=== PATIENT | male | born 1950 | race Caucasian/White ===

== ENCOUNTER → 2021-03-11 12:38 | Outpatient (CLI) | payer MEDICARE, SELFPAY ==
[2021-02-26 10:07] VITALS: BMI 20.5
--- NOTE | 2021-03-11 12:41 | CDU_ITS ---
Reason For Study: CAROTID STENOSIS Rt. Velocities/BP Lt. Velocities/BP Prox CCA 96.4/26.0 cm/sec. Prox CCA 85.7/19.9 cm/sec. Mid CCA 82.0/23.3 cm/sec. Mid CCA 87.5/25.4 cm/sec. Dist CCA 72.9/23.3 cm/sec. Dist CCA 93.0/30.9 cm/sec. Prox ICA 222.8/64.3 cm/sec. Prox ICA 162.2/34.9 cm/sec. Mid ICA 228.3/69.8 cm/sec. Mid ICA 153.4/39.3 cm/sec. Dist ICA 122.2/34.5 cm/sec. Dist ICA 96.3/26.1 cm/sec. Rt. ICA/CCA = 228.3/96.4=2.4. Lt. ICA/CCA = 162.2/87.5=1.9. Prox ECA 154.5/32.1 cm/sec. Prox ECA 151.4/21.7 cm/sec. Rt. Vert. 78.4/19.9 cm/sec. Lt. Vert. 66.0/17.9 cm/sec. Right Extracranial There is homogeneous, smooth atherosclerotic plaque noted in the right common carotid artery. There is heterogeneous, irregular atherosclerotic plaque noted in the right internal carotid artery. There is heterogeneous, irregular atherosclerotic plaque noted in the right external carotid artery. Antegrade flow is noted in the right vertebral artery. There is heterogeneous, irregular atherosclerotic plaque noted in the right bulb. Left Extracranial There is homogeneous, smooth atherosclerotic plaque noted in the left common carotid artery. There is heterogeneous, irregular atherosclerotic plaque noted in the left internal carotid artery. There is heterogeneous, smooth atherosclerotic plaque noted in the left external carotid artery. Antegrade flow is noted in the left vertebral artery. There is heterogeneous, irregular atherosclerotic plaque noted in the left bulb. VL/Carotid Duplex Ultrasound Interpretation Summary Extensive irregular calcific plaque with shadowing at the proximal right [employer] al carotid artery with greater than 70% stenosis. Tandem area of stenosis noted within the proxim al and mid right internal carotid artery Less than 50% stenosis right external carotid artery Irregular calcific plaque in the proximal left internal carotid artery with 50 to 69% stenosis. Less than 50% stenosis left external carotid artery Patent and antegrade vertebral arteries bilaterally Ordering Physician: Jak Gay Referring Physician: Pamela Murphy Performed By: Anu Jacob, RDCS, RVT
== END ==
PROVIDERS: PCP Internal Medicine Infectious Disease; Referring Provider Surgery; Visit Provider Surgery
DX: I65.23 Occlusion and stenosis of bilateral carotid arteries (principal)
CPT/HCPCS: 93880